=== PATIENT | female | born 2000 ===

== ENCOUNTER 2021-02-09 19:10 | Emergency (ER) | payer OTHER, SELFPAY ==
[2021-02-09 19:30] VITALS: BP 110/80; PULSE 90; O2SAT 98
[2021-02-09 19:31] VITALS: BP 116/66; PULSE 132; RESP 19; TEMP 39.6; O2SAT 100; BMI 17.2
[2021-02-09] MEDS: Acetaminophen 325 MG TABLET 650 MG PO (19:43)
[2021-02-09 20:13] LABS: Eosinophils Percent Auto 0.1 % (0-4); SCAN SMEAR FLAG 1
[2021-02-09 20:15] LABS: Basophils Percent Auto 0.3 % (0-2); Hematocrit 38.5 % (37.0-47.0); Hemoglobin 12.4 g/dl (12.0-16.0); Imm Gran Abs Auto 0.03 X10*3/uL (0.00-0.03); Imm Gran Pct Auto 0.4 % (0.0-0.4); Lymphocytes Absolute Auto 0.3 X10*3/uL (1.2-4.9); Lymphocytes Percent Auto 3.6 % (20-40); MANUAL DIFF FLAG NO; Mean Corpuscular HGB Conc 32.2 g/dl (31.0-35.0); Mean Corpuscular Hemoglobin 29.5 pg (27.0-33.0); Mean Corpuscular Volume 91.7 fL (80.0-98.0); Monocytes Absolute Auto 0.8 X10*3/uL (0.1-1.2); Monocytes Percent Auto 10.7 % (2-11); Neutrophils Absolute Auto 6.7 x10*3/uL (2.0-8.3); Neutrophils Percent Auto 84.9 % (45-73); PLT ABN DIST 1; Platelet Count 137 X10*3/uL (160-400); White Blood Count 7.8 X10*3/uL (4.8-10.8)
[2021-02-09 20:28] LABS: Alanine Aminotransferase 13 U/L (0-31); Albumin Level 4.5 g/dL (3.5-5.0); Alkaline Phosphatase 76 U/L (39-117); Anion Gap 14 (12-20); Aspartate Amino Transferase 21 U/L (5-31); Bilirubin Total 0.2 mg/dL (0.0-1.0); Blood Urea Nitrogen 7 mg/dL (9-16); Calcium 9.6 mg/dL (8.4-10.2); Carbon Dioxide 23 mmol/L (22-29); Chloride 106 mmol/L (96-108); Creatinine Clr Calc Pharmacy 74.7; Estimated Glomerular Filt Rate > 60; Glucose Fasting 116 mg/dL (60-99); Potassium 3.8 mmol/L (3.3-5.1); Sodium 139 mmol/L (135-145); Total Protein 7.6 g/dL (6.5-8.0)
[2021-02-09 20:46] LABS: Influenza A PCR POSITIVE (Negative); Influenza B PCR NEGATIVE (Negative); Resp Syncy Virus RNA Qual PCR NEGATIVE (Negative); SARS COV2 PCR INHOUSE NEGATIVE (Negative)
--- NOTE | 2021-02-09 23:31 | PC.NURSE ---
no number listed on chart in attempt to call with positive flu results.
== END 2021-02-09 23:31 | disposition left against medical advice (07) ==
LOC: HO.ED 23:20
PROVIDERS: Emergency Provider Emergency Medicine
DX: R50.9 Fever, unspecified (principal); R51.9 Headache, unspecified; R05.9 Cough, unspecified; M79.10 Myalgia, unspecified site; Z20.822 Contact with and (suspected) exposure to COVID-19
CPT/HCPCS: 0241U; 36415; 80053; 85025; 99283